=== PATIENT | male | born 1990 | race African-American/Black ===

== ENCOUNTER 2017-04-28 11:19 | Emergency (ER) | payer MEDICAID, OTHER | END 2017-04-28 14:14 | disposition left against medical advice (07) | LOC: ER 12:23 | DX: R11.2 Nausea with vomiting, unspecified (principal); Z53.21 Procedure and treatment not carried out due to patient leaving prior to being seen by health care provider ==

== ENCOUNTER 2019-02-21 09:19 | Emergency (ER) | payer MEDICAID ==
[~2019-02-21] VITALS: Ht 175.3 cm; Wt 120.0 kg
[2019-02-21] MEDS ORDERED: TRAMADOL 50MG TABLET PO ONE (10:45)
[2019-02-21] MEDS ORDERED: ACETAMINOPHEN 325MG TABLET PO ONE (10:45)
[2019-02-21 10:55] VITALS: BP 136/80
== END 2019-02-21 11:06 | disposition home or self-care (01) ==
LOC: ER 09:19
DX: M54.5 Low back pain (principal); Z88.6 Allergy status to analgesic agent; X50.0XXA Overexertion from strenuous movement or load, initial encounter; Y93.89 Activity, other specified; Y92.89 Other specified places as the place of occurrence of the external cause
CPT/HCPCS: 99283

== ENCOUNTER 2019-06-29 13:31 | Emergency (ER) | payer MEDICAID ==
[~2019-06-29] VITALS: Ht 170.2 cm; Wt 109.0 kg
[2019-06-29] MEDS ORDERED: IBUPROFEN 400MG TABLET PO ONE (14:30)
[2019-06-29 17:33] VITALS: BP 133/79
== END 2019-06-29 17:58 | disposition home or self-care (01) ==
LOC: ER 13:31
DX: H11.33 Conjunctival hemorrhage, bilateral (principal); R51 Headache; Z88.6 Allergy status to analgesic agent
CPT/HCPCS: 99284

== ENCOUNTER 2021-01-02 08:30 | Emergency (ER) | payer MEDICAID ==
[~2021-01-02] VITALS: Ht 175.3 cm; Wt 109.0 kg
[2021-01-02] MEDS ORDERED: HYDROCODONE/ACETAMINOPHEN 5/325MG TABLET PO ONE (09:00)
[2021-01-02 09:23] VITALS: BP 153/98
[2021-01-02] MEDS ORDERED: BACL-141 MT (09:43)
[2021-01-02] MEDS ORDERED: LIDO700A15 TP (09:43)
[2021-01-02] MEDS ORDERED: ACET-2708 MT (09:43)
== END 2021-01-02 10:01 | disposition home or self-care (01) ==
LOC: ER 08:30
DX: M23.92 Unspecified internal derangement of left knee (principal); Z00.00 Encounter for general adult medical examination without abnormal findings; Z88.6 Allergy status to analgesic agent; Z98.890 Other specified postprocedural states
CPT/HCPCS: 73562; 99283; Z7610

== ENCOUNTER 2022-12-08 07:07 | Emergency (ER) | payer MEDICAID ==
[~2022-12-08] VITALS: Ht 170.2 cm; Wt 114.6 kg
[~2022-12-08 07:07] MED LIST: ACET-2708 MT; BACL-141 MT; LIDO700A15 TP
[2022-12-08 07:13] VITALS: O2SAT 100
[2022-12-08] MEDS ORDERED: ACETAMINOPHEN WITH CODEINE 300/30MG TABLET PO ONE (07:45)
[2022-12-08] MEDS ORDERED: T3 PO (09:01)
[2022-12-08 09:11] VITALS: BP 136/87; PULSE 63; RESP 18; TEMP 98.6
== END 2022-12-08 09:18 | disposition home or self-care (01) ==
LOC: ER 07:07
DX: M54.2 Cervicalgia (principal); Z88.6 Allergy status to analgesic agent
CPT/HCPCS: 73030; 99284

== ENCOUNTER 2023-07-27 10:33 | Emergency (ER) | payer MEDICAID ==
[~2023-07-27] VITALS: Ht 175.3 cm; Wt 113.4 kg
[~2023-07-27 10:33] MED LIST changes: +T3 PO
[2023-07-27 10:46] VITALS: BP 156/100; RESP 16; TEMP 98.4; O2SAT 99
[2023-07-27 10:49] VITALS: PULSE 92
[2023-07-27] MEDS ORDERED: DIPH25TA62 MT (11:01)
[2023-07-27] MEDS ORDERED: P20 MT (11:01)
== END 2023-07-27 11:57 | disposition home or self-care (01) ==
LOC: ER 10:46
DX: T78.1XXA Other adverse food reactions, not elsewhere classified, initial encounter (principal); I10 Essential (primary) hypertension; Z98.890 Other specified postprocedural states; Z88.6 Allergy status to analgesic agent; Y92.89 Other specified places as the place of occurrence of the external cause
CPT/HCPCS: 99283

== ENCOUNTER 2024-05-18 08:35 | Emergency (ER) | payer MEDICAID ==
[~2024-05-18] VITALS: Ht 175.3 cm; Wt 108.9 kg
[~2024-05-18 08:35] MED LIST changes: +DIPH25TA62 MT; +P20 MT
[2024-05-18 08:47] VITALS: O2SAT 100
[2024-05-18 12:57] VITALS: TEMP 98.2
[2024-05-18] MEDS: ACETAMINOPHEN 325MG TABLET PO ONE (12:57)
[2024-05-18] MEDS ORDERED: TRAM50TA3 MT (15:01)
[2024-05-18] MEDS ORDERED: TOPUD MT (15:01)
[2024-05-18 15:45] VITALS: BP 126/82; PULSE 72; RESP 18; O2SAT 100
== END 2024-05-18 15:45 | disposition home or self-care (01) ==
LOC: ER 08:35
DX: M25.561 Pain in right knee (principal); Z88.6 Allergy status to analgesic agent
CPT/HCPCS: 73562; 99283